=== PATIENT | female | born 1965 | race African-American/Black ===

== ENCOUNTER 2017-03-10 12:24 | Outpatient (CLI) | payer BC, OTHER ==
[2017-03-10 13:00] LABS: Hemoglobin A1c 5.7 % (4.0-6.0)
[2017-03-10 13:05] LABS: ALT (SGPT) 14 U/L (8-55); AST (SGOT) 18 U/L (5-34); Alkaline Phosphatase 80 U/L (40-150); Anion Gap 11 mmol/L (10-20); BUN (Urea Nitrogen) 13 mg/dL (9.8-20.1); Bilirubin, Total 0.5 mg/dL (0.2-1.2); Calc. Creatinine Clearance 0 mL/min (70-130); Calcium 9.8 mg/dL (7.8-10.44); Carbon Dioxide 28 mmol/L (22-29); Cardiac Risk 3.5 (Less than 4.5); Chloride 107 mmol/L (98-107); Cholesterol 201 mg/dl (< 200 Desired); Estimated GFR-MDRD 82; Globulin 3.7 g/dL (2.4-3.5); Glucose 91 mg/dL (70-105); HDL Cholesterol 58 mg/dL (>60 Neg Risk); LDL Cholesterol, Calculated 128 mg/dL; Potassium 4.3 mmol/L (3.5-5.1); Protein, Total 7.7 g/dL (6.0-8.3); Sodium 142 mmol/L (136-145); Triglycerides 74 mg/dL (Less than 150)
[2017-03-10 13:27] LABS: Vitamin D, 25 Hydroxy 23.3 ng/ml (> 30.0)
[2017-03-10 13:58] LABS: #Basophils 0.1 thou/uL (0.0-0.2); #Eosinphils 0.3 thou/uL (0.0-0.7); #Lymphocytes 1.9 thou/uL (1.20-3.40); #Monocytes 0.4 thou/uL (0.11-0.59); #Neutrophils 2.3 thou/uL (1.40-6.50); %Basophils 1.2 % (0.0-1.0); %Eosinophils 5.5 % (0.0-10.0); %Lymphocytes 39.3 % (21.0-51.0); %Monocytes 7.3 % (0.0-10.0); %Neutrophils 46.7 % (42.0-75.0); Hemoglobin 13.7 g/dL (12.0-16.0); Mean Corpuscular HGB CONC 30.7 g/dL (32.0-36.0); Mean Corpuscular Hemoglobin 28.6 pg (27.0-31.0); Mean Corpuscular Volume 93.1 fl (81.0-99.0); Mean Platelet Volume 8.2 fL (7.4-10.4); Platelet Count 296 thou/uL (130-400); RBC Distribution Width 12.8 % (11.5-14.5); White Blood Cell (WBC) Count 4.9 thou/uL (4.8-10.8)
[2017-03-11 17:29] LABS: Creatinine, Urine 230.42 mg/dL (47-110); Microalbumin Urine 1.1 mg/dL (0.5-50.0); Microalbumin/Creat Ratio 4.8 mg/g (Less than 30)
== END 2017-03-10 12:25 | disposition home or self-care (01) ==
LOC: MADLABBHPM 12:24
PROVIDERS: ATTEND Family Medicine
DX: Z00.00 Encounter for general adult medical examination without abnormal findings (principal)
CPT/HCPCS: 36415; 80053; 80061; 82043; 82306; 83036; 84443; 85025

== ENCOUNTER 2017-12-07 01:16 | Emergency (ER) | payer BC ==
[2017-12-07] MEDS ORDERED: Ondansetron HCl/PF 4 MG/2 ML Vial ONE (02:00)
[2017-12-07] MEDS ORDERED: Fentanyl 100 MCG/2 ML VIAL ONE ×2 (02:00→04:49)
[2017-12-07] MEDS ORDERED: Famotidine In NaCl 20 mg/50 ml Premix Bag ONE (02:00)
[2017-12-07 02:27] LABS: Anion Gap 17 mmol/L (10-20); BUN (Urea Nitrogen) 17 mg/dL (9.8-20.1); Calc. Creatinine Clearance 0 mL/min (70-130); Carbon Dioxide 22 mmol/L (22-29); Chloride 108 mmol/L (98-107); Estimated GFR-MDRD 59; Glucose 129 mg/dL (70-105); Sodium 142 mmol/L (136-145)
[2017-12-07 02:34] LABS: CKMB 0.8 ng/mL (0-6.6); Troponin I 0.036 ng/mL (< 0.028)
[2017-12-07 02:35] LABS: Hemoglobin 12.2 g/dL (12.0-16.0); Mean Corpuscular HGB CONC 32.7 g/dL (32.0-36.0); Mean Corpuscular Volume 88.7 fl (81.0-99.0); Mean Platelet Volume 6.8 fL (7.4-10.4); Platelet Count 279 thou/uL (130-400); RBC Distribution Width 13.3 % (11.5-14.5); White Blood Cell (WBC) Count 8.5 thou/uL (4.8-10.8)
[2017-12-07 02:36] LABS: Band 5 % (5-11); Neutrophil 77 % (42-75)
[2017-12-07 02:37] LABS: Lymphocytes 15 % (21-51); Monocytes 3 % (0-10)
[2017-12-07 04:35] LABS: Bilirubin Negative (Negative); Blood, Urine Small (Negative); Clarity Cloudy (Clear); Glucose, Urine (Dipstick) Negative (Negative); Leukocyte Small (Negative); Nitrite Negative (Negative); Protein, Urine (Dipstick) Trace mg/dL (Neg-Trace); Specific Gravity, Urine 1.015 (1.005-1.030); Urobilinogen 0.2 mg/dL (0.2-1.0); pH, Urine 5.5 (5.0-9.0)
[2017-12-07 04:44] LABS: RBC/HPF 21-50 HPF (0-3); WBC/HPF 21-50 HPF (0-3)
[2017-12-07 04:45] LABS: Bacteria/HPF 2+ HPF (None Seen)
[2017-12-07] MEDS ORDERED: cefTRIAXone\\ROCEPHIN 2 GM VIAL ONE (04:55)
[2017-12-07] MEDS ORDERED: Sodium Chloride 0.9% 100 ML BAG ONE (07:43)
--- NOTE | 2017-12-07 08:22 | CT ---
PRELIMINARY REPORT/[facility]/EMERGENTY AFTER-HOURS PROCEDURE CT Abdomen and Pelvis With Intravenous Contrast CLINICAL HISTORY: 52 years old, female; Pain; Abdominal pain; Flank; Right lower quadrant (rlq); Patient HX: PT having rlq pain. R/O appy. Oral and iv contrast given TECHNIQUE: Axial computed tomography images of the abdomen and pelvis with intravenous contrast. All CT scans at this facility use one or more dose reduction techniques, viz.: automated exposure con trol; ma/kV adjustment per patient size (including targeted exams where dose is matched to indication ; i.e. head); or iterative reconstruction technique. CONTRAST: 96 ml of Isovue 37o administered intravenously. COMPARISON: No relevant prior studies available. FINDINGS: Lower thorax: Cardiac device in place. ABDOMEN: Liver: Hepatic steatosis. Gallbladder and bile ducts: Prior cholecystectomy. Pancreas: Normal. No ductal dilation. Spleen: Normal. No splenomegaly. Adrenals: Normal. No mass. Kidneys and ureters: 2 mm obstructing stone in the distal right ureter causing mild obstructive uropa thy. Stomach and bowel: Chronic postsurgical change of the stomach. Colonic diverticulosis. No diverticuli tis. Appendix: Normal appendix. PELVIS: Bladder: Unremarkable as visualized. Reproductive: 5.5 cm peripherally calcified uterine fibroid. ABDOMEN and PELVIS: Intraperitoneal space: Normal. No free air. No significant fluid collection. Bones/joints: No acute fracture. No dislocation. Soft tissues: Unremarkable. Vasculature: Normal. No abdominal aortic aneurysm. Lymph nodes: Normal. No enlarged lymph nodes. IMPRESSION: 2 mm obstructing stone in the distal right ureter causing mild obstructive uropathy. Thank you for allowing us to participate in the care of your patient. Dictated and Authenticated by: Asael Owens MD 12/07/2017 5:13 AM Central Time ([place] & [place]) FINAL REPORT CT ABDOMEN AND PELVIS WITH IV AND ORAL CONTRAST: DATE: 12/07/17. TIME: Performed on an emergency basis at 0359 hours. HISTORY: Abdomen pain. FINDINGS: Agree with the preliminary report by Dr. Owens from [facility]. Partial obstruction of a 2 mm distal right ureteral calculus. Fibroid uterus and other incidental findings. POS: OFF
[2017-12-07] MEDS ORDERED: Iopamidol 370 76% 100 ML VIAL ONE (10:40)
== END 2017-12-07 05:40 | disposition home or self-care (01) ==
LOC: MADERS 01:16
DX: N13.2 Hydronephrosis with renal and ureteral calculous obstruction (principal); N39.0 Urinary tract infection, site not specified; E11.9 Type 2 diabetes mellitus without complications; E78.5 Hyperlipidemia, unspecified; I10 Essential (primary) hypertension; F17.220 Nicotine dependence, chewing tobacco, uncomplicated
CPT/HCPCS: 36415; 74177; 80048; 81003; 81015; 82150; 82553; 84484; 85025; 93005; 96365; 96367; 96375; 96376; J0696; J2405; J3010; J7050

== ENCOUNTER 2019-05-30 09:28 | Outpatient (CLI) | payer OTHER, BC ==
--- NOTE | 2019-05-30 09:49 | RAD ---
XR Knee Rt 4 View STANDARD History: Chronic knee pain without trauma Comparison: None. Findings: Moderate medial compartment joint space narrowing with moderate osteophyte formation. Also moderate patellofemoral and lateral compartment osteophytes. There is appearance of a linear lucency at the femoral notch. This is likely the border of a large posterior osteophyte and less like ly a fracture. Small effusion. Soft tissues are unremarkable. Impression: Moderate degenerative changes, greatest in the medial compartment. Linear lucency seen on the AP and external oblique images are likely the superior margin of the posterior intercondylar notch osteophyte and much less likely a fracture. If the patient is acutely unable to bear weight, CT would be recommended.
== END 2019-05-30 09:29 | disposition home or self-care (01) ==
LOC: MADRAD 09:28
PROVIDERS: ATTEND Family Medicine
DX: M25.561 Pain in right knee (principal); M17.11 Unilateral primary osteoarthritis, right knee

== ENCOUNTER 2020-09-13 08:24 | Outpatient (CLI) | payer OTHER, BC ==
[2020-09-13 09:01] LABS: ALT (SGPT) 16 U/L (8-55); AST (SGOT) 18 U/L (5-34); Alkaline Phosphatase 69 U/L (40-110); Anion Gap 11 mmol/L (10-20); BUN (Urea Nitrogen) 30 mg/dL (9.8-20.1); Bilirubin, Total 0.4 mg/dL (0.2-1.2); Calc. Creatinine Clearance 0 mL/min (70-130); Calcium 9.2 mg/dL (7.8-10.44); Carbon Dioxide 28 mmol/L (22-29); Cardiac Risk 2.9 (Less than 4.5); Chloride 109 mmol/L (98-107); Cholesterol 179 mg/dl (< 200 Desired); Globulin 3.2 g/dL (2.4-3.5); Glucose 98 mg/dL (70-105); HDL Cholesterol 62 mg/dL (>60 Neg Risk); LDL Cholesterol, Calculated 106 mg/dL; Potassium 4.4 mmol/L (3.5-5.1); Protein, Total 7.2 g/dL (6.0-8.3); Sodium 144 mmol/L (136-145); Triglycerides 54 mg/dL (Less than 150)
== END 2020-09-13 08:25 | disposition home or self-care (01) ==
LOC: MADLAB 08:24
PROVIDERS: ATTEND Internal Medicine Cardiovascular Disease
DX: E78.00 Pure hypercholesterolemia, unspecified (principal)
CPT/HCPCS: 36415; 80053; 80061

== ENCOUNTER 2021-01-02 11:58 | Outpatient (CLI) | payer BC | END 2021-01-02 11:59 | disposition home or self-care (01) | LOC: MADRAD 11:58 | PROVIDERS: ATTEND Family Medicine | DX: M17.11 Unilateral primary osteoarthritis, right knee (principal) ==

== ENCOUNTER 2025-03-26 14:30 | Outpatient (CLI) | payer BC ==
[2025-03-26 15:08] LABS: ALT (SGPT) 13 U/L (Less than 34); AST (SGOT) 28 U/L (11-34); Albumin 3.7 g/dL (3.1-4.5); Alkaline Phosphatase 68 U/L (40-110); Anion Gap 15 mmol/L (10-20); BUN (Urea Nitrogen) 17 mg/dL (9.8-20.1); Bilirubin, Total 0.5 mg/dL (0.3-1.2); Calc. Creatinine Clearance 0 mL/min (70-130); Calcium 9.2 mg/dL (7.8-10.44); Carbon Dioxide 25 mmol/L (22-29); Cardiac Risk 2.8 (Less than 4.5); Chloride 107 mmol/L (98-107); Cholesterol 178 mg/dl (< 200 Desired); Globulin 3.4 g/dL (2.4-3.5); Glucose 80 mg/dL (70-105); HDL Cholesterol 63 mg/dL (>60 Neg Risk); LDL Cholesterol, Calculated 102 mg/dL; Potassium 4.2 mmol/L (3.5-5.1); Sodium 143 mmol/L (136-145); Triglycerides 65 mg/dL (Less than 150)
== END 2025-03-26 14:31 | disposition home or self-care (01) ==
LOC: MADLAB 14:30
PROVIDERS: ATTEND Internal Medicine Cardiovascular Disease
DX: E78.00 Pure hypercholesterolemia, unspecified (principal)
CPT/HCPCS: 36415; 80053; 80061

== ENCOUNTER 2025-06-20 10:44 | Outpatient (CLI) | payer BC ==
[2025-06-20 11:24] LABS: ALT (SGPT) 12 U/L (Less than 34); AST (SGOT) 27 U/L (11-34); Albumin 4.0 g/dL (3.1-4.5); Alkaline Phosphatase 64 U/L (40-110); Anion Gap 16 mmol/L (10-20); BUN (Urea Nitrogen) 21 mg/dL (9.8-20.1); Bilirubin, Total 0.6 mg/dL (0.3-1.2); Calc. Creatinine Clearance 0 mL/min (70-130); Calcium 9.7 mg/dL (7.8-10.44); Carbon Dioxide 25 mmol/L (23-31); Cardiac Risk 2.4 (Less than 4.5); Chloride 106 mmol/L (98-107); Cholesterol 183 mg/dl (< 200 Desired); Globulin 3.7 g/dL (2.4-3.5); Glucose 85 mg/dL (80-115); HDL Cholesterol 75 mg/dL (>60 Neg Risk); LDL Cholesterol, Calculated 97 mg/dL; Potassium 3.6 mmol/L (3.5-5.1); Sodium 143 mmol/L (136-145); Triglycerides 57 mg/dL (Less than 150)
== END 2025-06-20 10:45 | disposition home or self-care (01) ==
LOC: MADLAB 10:44
PROVIDERS: ATTEND Nurse Practitioner Family
DX: I10 Essential (primary) hypertension (principal)
CPT/HCPCS: 36415; 80053; 80061